=== PATIENT | female | born 1960 | race Caucasian/White ===

== ENCOUNTER 2017-11-06 23:04 | Emergency (ER) | payer OTHER ==
[2017-11-07] MEDS ORDERED: CLINDAMYCIN HCL 150 MG CAPSULE PO ONE (00:26)
--- NOTE | 2017-11-07 00:29 | ER Document Report ---
ED General - General Chief Complaint: Post Surgical Bleeding Stated Complaint: POST OP ABDOMINAL BLEEDING Notes: This is a 57-year-old lady who is about 2 weeks status post open bilateral salpingo-oophorectomy, gastritis and perforation which was oversewn without issue. She has been getting redness for the last 2 days on the incision and tonight had some bloody discharge. This was acute and is now resolved. No fevers or chills no abdominal pain remote from the incision, no fevers no vomiting. TRAVEL OUTSIDE OF THE [place] IN LAST 30 DAYS: No - Related Data Allergies/Adverse Reactions: cephalexin monohydrate [From Keflex] Allergy (Severe, Verified 06/26/13 10:54) Shortness of Breath Penicillins Allergy (Severe, Verified 06/26/13 10:54) Shortness of Breath codeine [Codeine] Adverse Reaction (Intermediate, Verified 06/26/13 10:54) Nausea nalbuphine HCl [From Nubain] Adverse Reaction (Intermediate, Verified 06/26/13 10:54) Hypotension ibuprofen [From Motrin] Adverse Reaction (Mild, Verified 06/26/13 10:54) Nausea Past Medical History - Social History Smoking Status: Never Smoker Family History: None - Past Medical History Cardiac Medical History: Reports: Hx Hypertension Denies: Hx Coronary Artery Disease, Hx Heart Attack Pulmonary Medical History: Denies: Hx Asthma, Hx Bronchitis, Hx COPD, Hx Pneumonia Neurological Medical History: Denies: Hx Cerebrovascular Accident, Hx Seizures Musculoskeltal Medical History: Denies Hx Arthritis - Immunizations Hx Diphtheria, Pertussis, Tetanus Vaccination: Yes Review of Systems - Review of Systems Notes: REVIEW OF SYSTEMS GEN: Denies fever, chills, weight loss ENT: Denies sore throat, nasal discharge, ear pain EYES: Denies blurry vision, eye pain, discharge CV: Denies chest pain, palpitations, edema RESP: Denies cough, shortness of breath, wheezing GI: Denies abdominal pain, nausea, vomiting, diarrhea MSK: Denies joint pain/swelling, edema, SKIN: Rash and drainage from surgical incision LYMPH: Denies swollen glands/lymph nodes NEURO: Denies headache, focal weakness or numbness, dizziness PSYCH: Denies depression, suicidal or homicidal ideation PHYSICAL EXAMINATION General: No acute distress, well-nourished Head: Atraumatic, normocephalic ENT: Mouth normal, oropharynx moist, no exudates or tonsillar enlargement Eyes: Conjunctiva normal, pupils equal, lids normal Neck: No JVD, supple, no guarding CVS: Normal rate, regular rhythm, no murmurs Resp: No resp distress, equal and normal breath sounds bilaterally GI: Nondistended, soft, and will tenderness in the midline infraumbilical incision which is surrounded by about 6 cm of erythema without fluctuance on both sides, evidence of recent drainage but no active drainage or expressible pus. No fluctuance. Steri-Strips are in place. No abdominal tenderness remote from the incision Ext: No deformities, no edema, normal range of motion in upper and lower ext Back: No CVA or midline TTP Skin: No rash, warm Lymphatic: No lymphadeopathy noted Neuro: Awake, alert. Face symmetric. GCS 15. Physical Exam - Vital signs Vitals: Temp Pulse BP Pulse Ox 99.2 F 78 145/85 H 96 11/06/17 23:21 11/06/17 23:21 11/06/17 23:21 11/06/17 23:21 Course - Re-evaluation Re-evalutation: 11/07/17 00:27 Patient presents with surgical wound infection cellulitis, no evidence of abscess. Discharge, which I saw her towel but is no longer expressible, was serosanguineous. Differential includes seroma. Doubt intra-abdominal abscess or infection. No signs of sepsis. Allergic to penicillins will prescribe clindamycin and and outline the wound. She will follow-up with [facility] tomorrow or the next day. I have discussed with the patient there likely diagnosis, aftercare plan, follow-up plans and my usual and customary return precautions. They verbalized understanding of this. - Vital Signs Vital signs: Temp Pulse Resp BP Pulse Ox 99.2 F 78 145/85 H 96 11/06/17 23:21 11/06/17 23:21 11/06/17 23:21 11/06/17 23:21 Discharge - Discharge Clinical Impression: Surgical wound infection Qualifiers: Encounter type: initial encounter Qualified Code(s): T81.4XXA - Infection following a procedure, initial encounter Condition: Good Disposition: HOME, SELF-CARE Instructions: Wound Infection ([facility]) Additional Instructions: As we discussed I would like you to contact the photo of your wound infection to your surgeon tomorrow and arrange expeditious follow-up. Prescriptions: Clindamycin HCl 150 mg PO TID #21 capsule
[2017-11-07 01:21] VITALS: BP 142/84
== END 2017-11-07 01:20 | disposition home or self-care (01) ==
LOC: ER 23:04
DX: T81.4XXA Infection following a procedure, initial encounter (principal); L03.311 Cellulitis of abdominal wall; Y83.6 Removal of other organ (partial) (total) as the cause of abnormal reaction of the patient, or of later complication, without mention of misadventure at the time of the procedure; I10 Essential (primary) hypertension; Z90.722 Acquired absence of ovaries, bilateral; Z90.79 Acquired absence of other genital organ(s); Z88.1 Allergy status to other antibiotic agents; Z88.0 Allergy status to penicillin
CPT/HCPCS: 99283